=== PATIENT | male | born 1945 | race African-American/Black ===

== ENCOUNTER → 2016-11-16 | Outpatient (CLI) | payer OTHER ==
[~2016-11-16] MED LIST: CILOSTAZOL 100100 MG PO; HYDROCHLOROTHIA25 M1 PO; LIPITOR 10 MG10 M1 PO; LISINOPRIL5 MG PO; NORVASC10 MG PO; PLAVIX 75 MG TA75 MG PO
[2016-11-16 10:00] LABS: CREATININE 1.1 mg/dL (0.7-1.3)
== END ==
LOC: CAT 09:03
PROVIDERS: Family Medicine
DX: R91.1 Solitary pulmonary nodule (principal)